=== PATIENT | female | born 1990 | race Caucasian/White ===

== ENCOUNTER 2024-09-03 14:23 | Emergency (ER) | payer SELFPAY ==
[2024-09-03] VITALS (27 sets, daily range): BP systolic 98–169; BP diastolic 69–124; PULSE 71–129; RESP 9–32; O2SAT 97–100
--- NOTE | 2024-09-03 14:15 | RT.EKG_ITS ---
APPROVED REPORT Exam: Resting ECG Reason for Exam: dizziness Patient Location: E HR:115 bpm ECG Measurements Heart Rate 115 AXIS OK 122 P 63 QRSd 99 QRS 27 QT 314 T -28 QTc 434 Conclusion Sinus tachycardia...rate> 99 Nonspecific T abnormalities, inferior leads...T <-0.10mV, II III aVF
--- NOTE | 2024-09-03 14:41 | ED.GENADUL_ITS ---
Discharge Plan Disposition Patient Disposition: Home Condition: Stable Discharge Details Clinical Impression: Migraine Primary Care Provider: Unknown,Unknown ED Provider: Luc Blankenship Home Meds and New Rx's Prescriptions: New ondansetron 4 mg tablet,disintegrating 4 mg PO Q8H PRN (Reason: nausea and vomiting) Qty: 30 0RF Continued triamcinolone acetonide 0.1 % cream 1 applic topical BID Qty: 30 0RF ibuprofen 200 MG capsule 400 mg PO PRN PRN Discharge Instructions Additional Instructions: If your symptoms continue this week follow-up with your primary care provider. He can take 1000 mg of acetaminophen every 6 hours and 400 mg of ibuprofen every 4 hours as needed. If you feel more ill or have new symptoms such as persistent vomiting despite the ondansetron or high fevers return to the emergency department for reevaluation HPI General Mode of arrival: ambulatory . Date/Time Provider Initiated Documentation: 09/03/24 14:28 . Limitations to Documentation: no limitations . Information obtained by: patient . History of Present Illness 33 year old F presents to the emergency department with the chief complaint of migraine, nausea, described as moderate, Patient started experiencing this day(s) (4) and it has been constant. No relieving factors improve symptom(s), No exacerbating factors reported . Patient notes denies chest pain, fever/chills and shortness of breath. Related Data Home Medications ?Medication ?Instructions ?Recorded ?Confirmed ibuprofen 200 mg capsule 400 mg PO PRN PRN 06/26/17 09/03/24 triamcinolone acetonide 0.1 % 1 applic topical BID #30 grams 06/21/20 09/03/24 topical cream ondansetron 4 mg disintegrating 4 mg PO Q8H PRN nausea and 09/03/24 tablet vomiting #30 tabs Previous Rx's ?Medication ?Instructions ?Recorded triamcinolone acetonide 0.1 % 1 applic topical BID #30 grams 06/21/20 topical cream ondansetron 4 mg disintegrating 4 mg PO Q8H PRN nausea and 09/03/24 tablet vomiting #30 tabs Allergies Allergy/AdvReac Type Severity Reaction Status Date / Time No Known Allergies Allergy Unverified 09/03/24 14:26 General Stated Complaint: Dizzy/Sync YADIRA: 3 Review of Systems All systems reviewed & are unremarkable except as noted in HPI and below Constitutional Constitutional: Denies chills, Denies fever(s) and Reports headache(s) ENT Ears, Nose, Mouth, and Throat: Reports headache(s) Cardiovascular Cardiovascular: Denies chest pain, Reports lightheadedness and Denies dyspnea Respiratory Respiratory: Denies cough and Denies dyspnea Gastrointestinal Gastrointestinal: Denies abdominal pain, Reports nausea and Denies vomiting Neurologic Neurologic: Reports headache(s) Exam Const General: no acute distress Orientation: alert HENCT Head: normal to inspection Ears: external ears normal General nose exam: external nose normal Mouth: moist mucous membranes Eyes General: appearance normal, both eyes and all related structures Neck Neck: normal visual inspection Resp Effort & Inspection: normal respiratory effort and able to speak in complete sentences Auscultation: clear to auscultation bilaterally Cardio Jugular venous pressure: no JVD Rate: regular rate Heart Sounds: no murmurs GI Palpation: soft and nontender Skin General skin exam: no rashes or lesions noted Neuro General: patient alert and patient oriented x3 Cranial Nerves: CN's II-XI intact bilaterally Cognition: normal cognition Speech: speech normal Gait: normal gait Motor: muscle tone normal throughout and strength 5/5 throughout Sensory Exam: no sensory deficits noted Extrem General: normal to inspection Psych Mental Status: mental status grossly normal Course Vital Signs Vital signs: Vital Signs Pulse 111 H 09/03/24 14:24 Respiratory Rate 16 09/03/24 14:24 Blood Pressure 169/124 H 09/03/24 14:24 Pulse Oximetry 98 09/03/24 14:24 Pulse 111 H 09/03/24 14:24 Respiratory Rate 16 09/03/24 14:24 Blood Pressure 169/124 H 09/03/24 14:24 Pulse Oximetry 98 09/03/24 14:24 Pain Level 0 09/03/24 14:24 Medical Decision Making 33-year-old female who states she has a history of migraines but usually can make them go away by laying dark room and giving it some time comes in with headache similar to prior migraines are frontal headache for 4 days and then lightheaded. She says she has also had nausea without any vomiting. No fevers or chills, no chest pain or difficulty breathing. She is not to be tachycardic on arrival. She has no focal neurological deficits on exam. Clear speech, cranial nerves II through XII are intact. Clear lung sounds, soft nontender abdomen. She localizes the pain to the front of her head. No meningismus. She says the pain slowly worsened was not thunderclap in description. I suspect her symptoms are due to the migraine but given her tachycardia suspect he could be dehydrated, and also given her lightheadedness complaint will check a CBC, CMP, hCG troponins and D-dimer. Will hold off on a head CT as I doubt hemorrhage given it was not thunderclap in etiology and she has a history of migraines. No findings on exam or history to suggest [employer] infection. Labs unremarkable patient feels significantly better has no pain in the ER. Suspect migraine. Given improvement with medications do not feel head CT indicated. She will follow-up with her PCP if not improving and return precautions given Differential Diagnosis Differential Diagnosis: Migraine, dehydration, PE Lab Data Lab results reviewed: Yes I reviewed the patient's lab results. ECG Data Attestation: I personally reviewed and interpreted this ECG (s) as follows: Prior ECG tracings: available for review Interpretation: sinus tachycardia, rate of 115 no stemi Quality:SDOH Health Related Social Needs: No Data to Display [facility] All Active Problems (Updated 09/03/24 @ 17:18 by Luc Blankenship MD) Migraine (Chronic) Kidney stone on left side (Acute 07/08/17) Family History Mother Stroke Father No problems noted. Brother No problems noted. Grandfather Personal history of malignant neoplasm LUNG/BRAIN Grandfather Diabetes Depression Grandmother No problems noted. Grandmother No problems noted. Social History Smoking/Tobacco Use Status: Current every day Tobacco Type: cigarettes Tobacco: How many years used: 15 Smoking risk assessment performed?: Yes Drug use: Never Substance use type: does not use Do you feel safe at home: Yes Do you feel safe in your relationship?: Yes
[2024-09-03 14:56] LABS: Bilirubin Negative (Negative); Blood Negative (Negative); Clarity Clear (Clear); Glucose Negative (Negative); Ketones Negative (Negative); Leukocyte Esterase Negative (Negative); Nitrite Negative (Negative); Specific Gravity <= 1.005 (1.005-1.025); Urobilinogen 0.2 mg/dL (Up to 0.2)
[2024-09-03 15:00] LABS: Abs Immature Grans 0.02 10^3/uL (0.0-0.06); Absolute Basophil Count 0.03 10^3/uL (0.0-0.2); Absolute Eosinophil Count 0.01 10^3/uL (0.0-0.7); Absolute Lymphocyte Count 0.96 10^3/uL (1.2-3.4); Absolute Monocyte Count 0.74 10^3/uL (0.1-0.8); Absolute Neutrophil Count 6.54 10^3/uL (1.2-6.7); Basophils % 0.4 %; Eosinophils % 0.1 %; HCT 44.1 % (36.0-46.0); HGB 14.8 g/dL (11.2-15.7); Immature Grans % 0.2 %; Lymphocytes % 11.6 %; MCH 29.2 pg (27.0-33.0); MCHC 33.6 % (32.0-36.0); MCV 87 fL (80-95); MPV 9.6 fL (8.0-11.0); Monocytes % 8.9 %; Neutrophils % 78.8 %; Platelet Count 328 10^3/uL (130-400); RBC 5.06 10^6/uL (3.93-5.22); RDW 12.9 % (11.7-14.6); RDW-SD 41.2 fL
[2024-09-03] MEDS: Ketorolac 15 MG/ML VIAL IVP (15:03)
[2024-09-03] MEDS: Prochlorperazine 10 MG/2 ML VIAL IM (15:03)
[2024-09-03] MEDS: Dexamethasone 10 MG/ML VIAL IVP (15:04)
[2024-09-03] MEDS: diphenhydrAMINE 50 MG/ML VIAL 25 MG IVP (15:04)
[2024-09-03] MEDS: Normal Saline 1,000 ML 1000 ML IV (15:22)
[2024-09-03 15:29] LABS: D-Dimer 123 ng/mlFEU (<500)
[2024-09-03 15:36] LABS: ALT 37 U/L (14-59); AST 20 U/L (15-37); Albumin 4.4 g/dL (3.4-5.0); Alkaline Phosphatase 53 U/L (46-116); Anion Gap 12.4 mmol/L (3-11); BUN 6 mg/dL (7-18); Bilirubin, Total 0.4 mg/dL (0.2-1.0); CO2 26.6 mmol/L (21.0-32.0); CREATININE 0.6 mg/dL (0.55-1.02); Calcium 9.4 mg/dL (8.5-10.1); Chloride 103 mmol/L (98-107); Estimated GFR 120.72 (mL/min/1.73m2); Glucose 102 mg/dL (74-106); Potassium 4.1 mmol/L (3.5-5.1); Sodium 142 mmol/L (136-145); Total Protein 8.3 g/dL (6.4-8.2)
[2024-09-03 15:38] LABS: Troponin I < 4 ng/L (<or=51)
[2024-09-03 15:58] LABS: HCG Qual (Serum) Negative
[2024-09-03 17:02] LABS: Troponin I 8 ng/L (<or=51)
== END 2024-09-03 17:26 | disposition home or self-care (01) ==
PROVIDERS: Emergency Provider Emergency Medicine
DX: G43.909 Migraine, unspecified, not intractable, without status migrainosus (principal); R42 Dizziness and giddiness; F17.210 Nicotine dependence, cigarettes, uncomplicated
CPT/HCPCS: 36415; 80053; 81025; 93005; 96361; 96372; 96374; 96375; 99284; 81003; 83735; 84484; 84703; 85025; 85379; 93010; J0780; J1100; J1200; J1885

== ENCOUNTER 2025-05-10 12:51 | Emergency (ER) | payer SELFPAY ==
--- NOTE | 2025-05-10 12:45 | RT.EKG_ITS ---
APPROVED REPORT Exam: Resting ECG Reason for Exam: Chest pain Patient Location: E HR:120 bpm ECG Measurements Heart Rate 120 AXIS IN 158 P 55 QRSd 105 QRS 13 QT 314 T -37 QTc 444 Conclusion Sinus tachycardia, rate 120 No interval abnormalities No STEMI T wave inversion III, aVF, present on prior
[2025-05-10 12:58] VITALS: BP 153/94; PULSE 121; RESP 16; TEMP 36.8; O2SAT 98
[2025-05-10 13:04] VITALS: PULSE 138; RESP 30; TEMP 37.1; O2SAT 100
--- NOTE | 2025-05-10 13:15 | DI.RAD_ITS ---
Exam(s) XR CHEST 2V PA LATERAL EXAM: XR CHEST 2V PA LATERAL CLINICAL HISTORY: Chest pain TECHNIQUE: 2D digital imaging was performed. Two views. COMPARISON: CR ABD FLAT UPRIGHT PA CHEST from 11/25/2008 FINDINGS: HEART: Normal size. Aorta: Not dilated. PULMONARY VASCULATURE: Normal. MEDIASTINUM: Unremarkable. LUNGS: Clear. PLEURAL SPACE: No pleural effusion or pneumothorax. BONE:Unremarkable for age. SOFT TISSUES: Unremarkable. IMPRESSION: No acute abnormality. DATA REPOSITORY: RADIATION DOSE DELIVERED:
[2025-05-10 13:30] LABS: Abs Immature Grans 0.02 10^3/uL (0.0-0.06); HCT 41.4 % (36.0-46.0); HGB 13.8 g/dL (11.2-15.7); Immature Grans % 0.2 %; MCH 27.3 pg (27.0-33.0); MCHC 33.3 % (32.0-36.0); MCV 82 fL (80-95); MPV 9.2 fL (8.0-11.0); Platelet Count 371 10^3/uL (130-400); RBC 5.06 10^6/uL (3.93-5.22); RDW 13.8 % (11.7-14.6); RDW-SD 41.0 fL; WBC 9.10 10^3/uL (4.4-10.8)
[2025-05-10] MEDS: Ketorolac 15 MG/ML VIAL IVP (13:30)
[2025-05-10] MEDS: dimenhyDRINATE 50 MG TABLET PO (13:31)
[2025-05-10] MEDS: LORazepam 1 MG TAB PO (13:38)
[2025-05-10 13:47] LABS: Lipase 31 U/L (<53)
[2025-05-10 13:48] LABS: Magnesium 1.7 mg/dL (1.6-2.6)
[2025-05-10 13:49] LABS: ALT 19 U/L (10-49); AST 25 U/L (<34); Albumin 4.9 g/dL (3.2-5.0); Alkaline Phosphatase 62 U/L (46-116); Anion Gap 12 mmol/L (3-11); BUN 8 mg/dL (9-23); Bilirubin, Total 0.60 mg/dL (0.2-1.2); CO2 24.0 mmol/L (20.0-31.0); Calcium 9.7 mg/dL (8.3-10.6); Chloride 103 mmol/L (98-107); Glucose 81 mg/dL (74-106); Potassium 3.6 mmol/L (3.5-5.1); Sodium 139 mmol/L (136-145); Total Protein 8.4 g/dL (5.7-8.2)
[2025-05-10 13:55] LABS: HCG Qual (Serum) Negative
[2025-05-10 13:57] LABS: Troponin I < 3 ng/L (<35)
--- NOTE | 2025-05-10 14:05 | W.ED.GENAD ---
Discharge Plan Disposition Patient Disposition: Home Condition: Stable Discharge Details Clinical Impression: Chest pain of uncertain etiology Primary Care Provider: Unknown,Unknown ED Provider: Idalia Mackey Home Meds and New Rx's Prescriptions: No Action meclizine 25 mg tablet 25 mg PO TID Qty: 14 0RF ibuprofen 200 MG capsule 400 mg PO PRN PRN ondansetron 4 mg tablet,disintegrating 4 mg PO Q8H PRN (Reason: nausea and vomiting) Qty: 30 0RF Discharge Instructions Instructions: Chest Pain, Adult ED Additional Instructions: You were seen in the emergency department today for evaluation of chest pain. In our department you had a full physical examination performed, had an EKG that was reassuring, and had laboratory studies that did not show any significant abnormalities to explain your pain. Specifically, your cardiac enzyme was undetectable, meaning that you do not have any evidence of damage to your heart or heart attack, and your blood clot lab was negative. You had a normal chest x-ray. Unfortunately, we are sometimes unable to determine the exact cause of symptoms in the emergency department. It is certainly possible that you have some inflammation of the cartilage or sprain/strain of the muscles in that region. However, you will need further workup with your primary care provider if the symptoms persist. In the meantime, please use therapeutic dosing of Tylenol (acetaminophen) & Advil (ibuprofen) in an alternating fashion as follows: Take 1000mg of Tylenol every 6 hours without missing doses- that is 4 times per day. Detention in between the Tylenol doses, take 600mg of Advil also on a 6 hour schedule, that is also 4 times per day. With this strategy, you will be taking something for fever/pain as often as every 3 hours. The daily maximum dosing of Tylenol is 4000mg, and the daily maximum dosing of Advil is 2400mg. Please note that some common cold medications & prescription pain medications may contain acetaminophen and you need to read OTC drug labels and factor that in to maximum daily doses. Please follow-up with your primary care provider in the next few days to discuss this visit and any symptoms that change, worsen, or persist. Thank you for allowing us to be part of your care. Stand Alone Forms: Portal Information HPI General Mode of arrival: ambulatory. Date/Time Provider Initiated Documentation: 05/10/25 13:02. Limitations to Documentation: no limitations. Information obtained by: patient, family and old records reviewed. HPI Narrative: This is a 34-year-old female patient with a history of vertigo presenting for evaluation of 4 days of pain. The patient reports that initially her chest pain was intermittent, seems to be worse with moving and deep breath. States that it has become more constant, radiates up into her neck and shoulder, no medications tried in the outpatient environment to improve her symptoms, resting and staying still seems to help. She has not had any cough or shortness of breath, did have a flulike illness a few weeks ago. No significant change in her pain with supine positioning or sitting up/leaning forward. She has not sustained any injuries or trauma, does endorse some baseline dizziness due to her vertigo, for which she takes Dramamine. Endorses some anxiety. Denies nausea or vomiting, has been eating and drinking normally, no abdominal discomfort. No leg swelling or calf pain, does not use any hormonal medications Related Data Home Medications ?Medication ?Instructions ?Recorded ?Confirmed ibuprofen 200 mg capsule 400 mg PO PRN PRN 06/26/17 09/21/24 ondansetron 4 mg disintegrating 4 mg PO Q8H PRN nausea and 09/03/24 09/21/24 tablet vomiting #30 tabs meclizine 25 mg tablet 25 mg PO TID #14 tabs 09/21/24 09/21/24 Previous Rx's ?Medication ?Instructions ?Recorded ondansetron 4 mg disintegrating 4 mg PO Q8H PRN nausea and 09/03/24 tablet vomiting #30 tabs meclizine 25 mg tablet 25 mg PO TID #14 tabs 09/21/24 Allergies Allergy/AdvReac Type Severity Reaction Status Date / Time No Known Allergies Allergy Unverified 09/21/24 13:46 General Stated Complaint: Chest Pain YADIRA: 4 Exam Narrative Exam Narrative: Gen: Awake and alert, in no apparent distress HEENT: Non-icteric sclera Neck: Supple Lungs: No apparent respiratory distress, normal respiratory effort. Lung sounds clear and equal bilaterally without wheezes, rhonchi, rales CV: Appears well perfused, heart with regular rate and rhythm, strong distal pulses. No overlying skin changes, chest wall is tender to palpation without deformity or crepitus Abdomen: Non-distended, soft, nontender to palpation without rigidity, rebound, or guarding. MSK: Moves 4 extremities without apparent limitation in ROM. No peripheral edema, no unilateral calf swelling or tenderness Skin: Visualized skin without rashes, cyanosis. Neuro: Normal Gait, no obvious focal deficits or facial asymmetry. Speaks in full, clear sentences. Psych: Appropriate for situation. Course Vital Signs Vital signs: Vital Signs Temperature 36.8 C 05/10/25 12:58 Pulse 121 H 05/10/25 12:58 Respiratory Rate 16 05/10/25 12:58 Blood Pressure 153/94 H 05/10/25 12:58 Pulse Oximetry 98 05/10/25 12:58 Temperature 37.1 C 05/10/25 13:04 Temperature Source Rectal 05/10/25 13:04 Pulse 138 H 05/10/25 13:04 Respiratory Rate 30 H 05/10/25 13:04 Respiratory Effort Normal 05/10/25 13:06 Respiratory Depth Normal 05/10/25 13:06 Respiratory Pattern Normal 05/10/25 13:06 Blood Pressure 153/94 H 05/10/25 12:58 Blood Pressure Position Sitting 05/10/25 13:04 Pulse Oximetry 100 05/10/25 13:04 Oxygen Delivery Method Room Air 05/10/25 13:04 Oxygen Flow Rate 0 05/10/25 13:04 Pain Level 5 05/10/25 12:58 Comment Pt does not appear to be in any distress, smiling at staff 05/10/25 13:04 Lab/Test Results Lab/Test Results: Laboratory Tests Range/Units 05/10/25 13:15 WBC (4.4-10.8) 10^3/uL 9.10 RBC (3.93-5.22) 10^6/uL 5.06 Hgb (11.2-15.7) g/dL 13.8 Hct (36.0-46.0) % 41.4 MCV (80-95) fL 82 MCH (27.0-33.0) pg 27.3 MCHC (32.0-36.0) % 33.3 RDW (11.7-14.6) % 13.8 Plt Count (130-400) 10^3/uL 371 MPV (8.0-11.0) fL 9.2 Immature Gran % % 0.2 Neutrophils % % 71.9 Lymphocytes % % 19.3 Monocytes % % 8.0 Eosinophils % % 0.2 Basophils % % 0.4 Nucleated RBC % (0.0-0.3) % 0.0 Absolute Neutrophils (1.2-6.7) 10^3/uL 6.53 Absolute Lymphocytes (1.2-3.4) 10^3/uL 1.76 Absolute Monocytes (0.1-0.8) 10^3/uL 0.73 Absolute Eosinophils (0.0-0.7) 10^3/uL 0.02 Absolute Basophils (0.0-0.2) 10^3/uL 0.04 Sodium (136-145) mmol/L 139 Potassium (3.5-5.1) mmol/L 3.6 Chloride (98-107) mmol/L 103 Carbon Dioxide (20.0-31.0) mmol/L 24.0 Anion Gap (3-11) mmol/L 12 H BUN (9-23) mg/dL 8 L Creatinine (0.55-1.02) mg/dL 0.52 L Est GFR (CKD-EPI 2020) (mL/min/1.73m2) 133.77 Glucose (74-106) mg/dL 81 Calcium (8.3-10.6) mg/dL 9.7 Magnesium (1.6-2.6) mg/dL 1.7 Total Bilirubin (0.2-1.2) mg/dL 0.60 AST (<34) U/L 25 ALT (10-49) U/L 19 Alkaline Phosphatase (46-116) U/L 62 Troponin I (<35) ng/L < 3 Total Protein (5.7-8.2) g/dL 8.4 H Albumin (3.2-5.0) g/dL 4.9 Lipase (<53) U/L 31 Serum HCG, Qual Negative Medical Decision Making This is a 34-year-old female patient presenting for evaluation of chest pain. My differential includes but is not limited to ACS including STEMI, NSTEMI, unstable angina, certainly considered arrhythmia, pericarditis/myocarditis, aortic pathology. Considered pulmonary abnormalities including pneumonia, bronchitis, pleural effusion, pulmonary edema, reactive airway disease, pneumothorax. The patient is tachycardic and has a pleuritic component to pain, I considered pulmonary embolism. No GI symptoms or vomiting to suggest Boerhaave's, esophagitis, peptic ulcer disease, pancreatitis. Considered musculoskeletal pathologies including costochondritis, chest wall pain. - I reviewed the patient's EKG, which shows a sinus tachycardia without evidence of ischemia, interval abnormality, or ectopy. She has T wave inversion in leads III and aVF which were demonstrated on prior EKGs. We will obtain labs to include CBC, CMP, magnesium, troponin, D-dimer, lipase, and will obtain a chest x-ray. I will provide the patient with a dose of Toradol, her home Dramamine, and Ativan for symptomatic management. -I independently interpreted the laboratory studies, which show no significant leukocytosis, anemia, or thrombocytopenia. The chemistry panel is without evidence of electrolyte abnormality, kidney dysfunction, or liver injury. Troponin is undetectable and given the duration of symptoms of 4 days I do not see an indication at this time to proceed with delta troponins. Lipase is low, and her D-dimer is below the cutoff to warrant additional imaging to evaluate for thromboembolic disease. On reevaluation, the patient reports improvement in her pain, a clear etiology has not been determined but I am suspicious for musculoskeletal pathologies given the improvement with conservative management such as Toradol as well as the reproducibility. I counseled the patient on outpatient primary care follow-up and use of [id number] medication such as Tylenol and ibuprofen. At this time, the patient has had a full medical evaluation and is safe for discharge to home. They are hemodynamically stable, ambulatory, and tolerating PO. They are understanding of the follow-up plan and return precautions. They left our facility without incident. Idalia Mackey MD [facility] All Active Problems (Updated 05/10/25 @ 15:20 by Idalia Mackey MD) Chest pain of uncertain etiology (Acute) Kidney stone on left side (Acute 07/08/17) Family History Mother Stroke Father No problems noted. Brother No problems noted. Grandfather Personal history of malignant neoplasm LUNG/BRAIN Grandfather Diabetes Depression Grandmother No problems noted. Grandmother No problems noted. Social History Smoking/Tobacco Use Status: Current every day Tobacco Type: cigarettes Tobacco: How many years used: 15 Smoking risk assessment performed?: Yes Alcohol Intake: current Alcohol Intake frequency: a few times a week Alcohol type: beer and wine Drug use: Never Substance use type: does not use Do you feel safe at home: Yes Do you feel safe in your relationship?: Yes PAWSS Have you Been Recently Intoxicated or Drunk Within the Last 30 days?: No Have you Ever Experienced Previous Episodes of Alcohol Withdrawal?: No Have you ever Experienced Withdrawal Seizures?: No Have you ever Experienced Delirium Tremens(DT)s?: No Have you ever undergone Alcohol Rehabilitation Treatment (i.e, inpt ot outpatient treatment programs)?: No Have you ever Experienced Blackouts?: No Have you ever Combined Alcohol with other Downers within the last 90 days?: No Have you ever Combined Alcohol with any other Substance of Abuse during the last 90 days?: No Positive Blood Alcohol level on Presentation? [PCS.BAL]: No Evidence of Increased Autonomic Activity (i.e. HR>120, tremor, sweating, agitation, nausea)?: No Result: 0
[2025-05-10 14:19] LABS: D-Dimer 138 ng/mlFEU (<500)
== END 2025-05-10 15:51 | disposition home or self-care (01) ==
PROVIDERS: Emergency Provider Emergency Medicine
DX: R07.9 Chest pain, unspecified (principal)
CPT/HCPCS: 36415; 80053; 83690; 93005; 96374; 99284; 71046; 83735; 84484; 84703; 85025; 85379; 93010; 99283; J1885